=== PATIENT | male | born 1960 | race Caucasian/White ===

== ENCOUNTER → 2020-11-21 | Outpatient (CLI) | payer MEDICARE ==
--- NOTE | 2020-11-21 16:48 | RAD ---
EXAM: Chest, 2 views. HISTORY: Pacemaker placement. COMPARISON: None. FINDINGS: 2 views of the chest are obtained. There is no infiltrate, pleural effusion or pneumothorax . The heart is normal in size. There is a right-sided cardiac pacemaker defibrillator in expected pos ition. IMPRESSION: No acute pulmonary finding. Electronically signed by: Yovana Sexton MD (11/21/2020 4:45 PM) [id number]
== END ==
LOC: RAD 16:21
PROVIDERS: ATTEND Internal Medicine Cardiovascular Disease
DX: I10 Essential (primary) hypertension (principal); R06.02 Shortness of breath; Z95.810 Presence of automatic (implantable) cardiac defibrillator
CPT/HCPCS: 71046

== ENCOUNTER 2021-09-13 11:41 | Emergency (ER) | payer MEDICARE ==
[~2021-09-13] VITALS: Ht 175.3 cm; Wt 97.4 kg
[2021-09-13] MEDS ORDERED: KETOROLAC 15 MG/ML VIAL. IVP ONE (12:30)
--- NOTE | 2021-09-13 13:02 | RAD ---
EXAM: XR SHOULDER_LEFT 2+ VIEWS, XR HUMERUS_LT 2 VIEWS, XR FOREARM_LEFT 2 VIEWS 09/13/2021 12:54 PM CLINICAL INDICATION: Fell on Friday, left-sided pain. Cannot move arm COMPARISON: None FINDINGS: Left shoulder: AP internal, AP external, and scapular Y views of the left shoulder. No acute fracture . Alignment is normal. The acromioclavicular and glenohumeral joints are maintained. Soft tissues nor mal. Left humerus: No acute fracture. Alignment is normal. There is a faint 1.8 x 1.3 cm sclerotic lesion in the mid humeral shaft. Left forearm: No acute fracture. Alignment is normal. No focal soft tissue abnormality. IMPRESSION: 1. No acute osseous abnormality of the left shoulder, humerus, or forearm. 2. Faint 1.8 cm sclerotic lesion in the left humeral midshaft, nonspecific. MRI with and without cont rast could be obtained to further evaluate. Electronically signed by: Aisha cMclendon MD (09/13/2021 1:00 PM) [id number]
[2021-09-13] MEDS ORDERED: ORPHENADRINE CITRATE 60 MG/2 ML VIAL. IV ONE (13:15)
--- NOTE | 2021-09-13 13:15 | PHYS DOC ---
Past History Past Surgical History: Lumbar Laminectomy, Other Additional Past Surgical Histo: pacemaker out. Alcohol Use: None General Adult EDM: Chief Complaint: SHOULDER INJURY HPI: HPI: Patient is a 61 year old male who presents with left upper extremity pain. Patient states that he was bowling 2 days ago, when he tripped over his own shoe and fell onto his left upper extremity. He states he has limited range of motion secondary to 10/10 pain. Patient denies paresthesias, weakness, head trauma, neck trauma, loss of consciousness. Review of Systems: Review of Systems: ROS negative or noncontributory except as mentioned in HPI. Current Medications: Current Meds: Current Medications Medications (Trade) Dose Ordered Sig/Crescencio Route PRN Reason Start Time Stop Time Status Last Admin Dose Admin Ketorolac Tromethamine (Toradol 15mg Vial) 15 mg 1X ONCE IVP 09/13/21 12:30 09/13/21 12:36 DC 09/13/21 12:30 Orphenadrine Citrate (Norflex) 60 mg 1X ONCE IV 09/13/21 13:15 09/13/21 13:37 DC 09/13/21 13:15 Morphine Sulfate (Morphine 2mg Syringe) 2 mg 1X ONCE IM 09/13/21 14:30 09/13/21 14:36 DC 09/13/21 14:35 Allergies: Allergies: Allergies Coded Allergies Type Severity Reaction Last Updated Verified bupropion Allergy Unknown 09/13/21 Yes oxycodone Allergy Unknown 09/13/21 Yes Physical Exam: PE: Constitutional: Well developed, well nourished, no acute distress, non-toxic appearance. HENT: Normocephalic, atraumatic, bilateral external ears normal, nose normal. Eyes: EOMI, conjunctiva normal, no discharge. Neck: Normal range of motion, no stridor. Skin: Warm, dry, no erythema, no rash. Back: No stepoff, no tenderness. Extremities: Right shoulder mild tenderness, no cyanosis, no clubbing, active ROM limited secondary to pain, passive ROM intact, no edema. Neurologic: Alert and oriented x4, normal motor function, normal sensory function, no focal deficits noted. Current Patient Data: Vital Signs: Vital Signs Date Time Temp Pulse Resp B/P (MAP) Pulse Ox O2 Delivery O2 Flow Rate FiO2 5/5/22 14:40 70 16 139/87 (104) 98 Room Air 09/13/21 14:35 16 09/13/21 11:54 98.2 65 16 131/94 (106) 98 Room Air Radiology/Procedures: Radiology/Procedures: PROCEDURE: SHOULDER 2+V LEFT EXAM: XR SHOULDER_LEFT 2+ VIEWS, XR HUMERUS_LT 2 VIEWS, XR FOREARM_LEFT 2 VIEWS 09/13/2021 12:54 PM CLINICAL INDICATION: Fell on Friday, left-sided pain. Cannot move arm COMPARISON: None FINDINGS: Left shoulder: AP internal, AP external, and scapular Y views of the left shoulder. No acute fracture. Alignment is normal. The acromioclavicular and glenohumeral joints are maintained. Soft tissues normal. Left humerus: No acute fracture. Alignment is normal. There is a faint 1.8 x 1.3 cm sclerotic lesion in the mid humeral shaft. Left forearm: No acute fracture. Alignment is normal. No focal soft tissue abnormality. IMPRESSION: 1. No acute osseous abnormality of the left shoulder, humerus, or forearm. 2. Faint 1.8 cm sclerotic lesion in the left humeral midshaft, nonspecific. MRI with and without contrast could be obtained to further evaluate. Electronically signed by: Aisha Mcclendon MD (09/13/2021 1:00 PM) [id number] Heart Score: C/O Chest Pain: No Course & Med Decision Making: Course & Med Decision Making Pertinent Labs and Imaging studies reviewed. (See chart for details) Patient is a 61-year-old male who presents with persistent left upper extremity pain after a fall 2 days ago. Plain films do not reveal any acute abnormalities. Patient is advised to continue with muscle relaxer and anti-inflammatories as well as stretching and exercises. Patient refuses to move his arm at this time, stating that the pain is too bad. Patient was provided with morphine IM prior to discharge to encourage movement of the extremity. He continues to refuse. Patient was advised to follow-up with his primary care provider for physical therapy and possibly further imaging to evaluate soft tissues. Return precautions were provided. Patient understands and is agreeable with discharge plan. Dragon Disclaimer: Dragon Disclaimer: This electronic medical record was generated, in whole or in part, using a voice recognition dictation system. Departure Departure: Impression: Primary Impression: Contusion of left shoulder, initial encounter Disposition: HOME / SELF CARE / HOMELESS Condition: IMPROVED Referrals: LIV MENDOZA DO (PCP) Patient Instructions: Contusion, [id number], RICE - Routine Care for Injuries, [id number] Additional Instructions: EMERGENCY DEPARTMENT GENERAL DISCHARGE INSTRUCTIONS Thank you for coming to [facility] (ED) today and trusting us with you care. We trust that you had a positive experience in our Emergency Department. If you wish to speak to the department management, you may call the director at [phone]. YOUR FOLLOW UP INSTRUCTIONS ARE FOLLOWS: 1. Follow up with your primary care doctor. If you do not have a primary doctor, please ask for a resource list of physicians or clinics that may be able to assist you with follow up care. 2. The emergency provider has interpreted your imaging studies, if any were o rdered. The radiology apartment leasing specialist also reviewed them. If there is a change in the findings, you will be notified in 48 hours when at all possible. 3. If a lab test or culture has been done, your results will be reviewed and you will be notified if you need a change in treatment. 4. Follow instructions verbalized to you and refer to the printouts if needed. ADDITIONAL INSTRUCTIONS AND INFORMATION: 1. Your care today has been supervised by a physician who is specially trained in emergency care. Many problems require more than one evaluation for a complete diagnosis and treatment. We recommend that you schedule your follow up appointment as recommended to ensure complete treatment of you illness or injury. If you are unable to obtain follow up care and continue to have a problem, or if your condition worsens, we recommend that you return to the ED. 2. We are not able to safely determine your condition over the phone nor are we able to give sound medical advice over the phone. For these safety reasons, if you call for medical advice we will ask you to come to the ED for further evaluation. 3. If you have any questions regarding these discharge instructions please call the ED at [phone]. SAFETY INFORMATION: In the interest of safety, wellness, and injury prevention; we encourage you to wear your seat belt, if you smoke; quite smoking, and we encourage family to use a protective helmet for bicycling and other sporting events that present an increased risk for head injury. IF YOUR SYMPTOMS WORSEN OR NEW SYMPTOMS DEVELOP, OR YOU HAVE CONCERNS ABOUT YOUR CONDITION; OR IF YOUR CONDITION WORSENS WHILE YOU ARE WAITING FOR YOUR FOLLOW UP APPOINTMENT; EITHER CONTACT YOUR PRIMARY CARE DOCTOR, THE PHYSICIAN WHOSE NAME AND NUMBER YOU WERE GIVEN, OR RETURN TO THE ED IMMEDIATELY. Scripts Naproxen (NAPROXEN) 500 Mg Tablet.dr 1 TAB PO BID for pain/inflammation, #20 TAB 0 Refills Prov: BARBIE BISHOP 09/13/21 Orphenadrine Citrate (ORPHENADRINE CITRATE) 100 Mg Tablet.er 1 TAB PO BID for muscle pain, #20 TAB 0 Refills Prov: BARBIE BISHOP 09/13/21 BARBIE BISHOP September 13, 2021 13:15
[2021-09-13] MEDS ORDERED: NAPR500T8 PO (14:07)
[2021-09-13] MEDS ORDERED: ORPH-16 PO (14:07)
[2021-09-13] MEDS ORDERED: MORPHINE SULFATE 2 MG/ML DISP.SYRIN. IM ONE (14:30)
[2021-09-13 14:40] VITALS: BP 139/87
== END 2021-09-13 14:39 | disposition home or self-care (01) ==
LOC: ER 11:41
DX: S40.012A Contusion of left shoulder, initial encounter (principal); Z88.5 Allergy status to narcotic agent; Z88.8 Allergy status to other drugs, medicaments and biological substances; W18.09XA Striking against other object with subsequent fall, initial encounter; Y93.89 Activity, other specified; Y92.89 Other specified places as the place of occurrence of the external cause; Y99.8 Other external cause status
CPT/HCPCS: 73030; 73060; 73090; 96372; 96374; 96375; 99284; J1885; J2270; J2360